=== PATIENT | male | born 1995 | race Caucasian/White ===

== ENCOUNTER 2017-03-22 16:49 | Emergency (ER) | payer OTHER ==
[~2017-03-22] VITALS: Ht 180.3 cm; Wt 80.7 kg
[2017-03-22] MEDS ORDERED: ASPIRIN 325 MG TABLET PO ONE (17:15)
[2017-03-22 17:30] VITALS: BP 119/69
--- NOTE | 2017-03-22 17:48 | ED.ADGEN ---
Past History Past Medical History: No Pertinent History Alcohol Use: None Drug Use: None Adult General Chief Complaint Chief Complaint Diffuse body rash HPI HPI Patient is a 22-year-old male presents with diffuse body rash with flushing after taking exercise supplement. Symptoms began 20 minutes ago started around face spread to torso and extremities. Rash is describing is warm and pruritic. No hives, oral pharyngeal swelling, chest tightness, wheezing or shortness of breath. She was taken similar exercise supplements without prior reactions. No other acute symptoms or complaints. Review of Systems Review of Systems Review symptoms as per history of present illness. All review of symptoms negative. Current Medications Current Medications Current Medications Medications (Trade) Dose Ordered Sig/Davonte Start Time Stop Time Status Last Admin Dose Admin Aspirin (Serafin Aspirin) 325 mg 1X ONCE 03/22/17 17:15 03/22/17 17:16 DC 03/22/17 17:13 325 MG Allergies Allergies Allergies Coded Allergies Type Severity Reaction Last Updated Verified No Known Drug Allergies 03/22/17 No Physical Exam Physical Exam Constitutional: No acute distress, generalized facial and body flushing. HENT: Normocephalic, atraumatic, bilateral external ears normal, oropharynx moist, no oral pharyngeal swelling. Eyes: PERRLA, EOMI. Neck: Normal range of motion, no tenderness, supple, no stridor. Cardiovascular:Heart rate regular rhythm, no murmur. Lungs & Thorax: Bilateral breath sounds clear to auscultation. Abdomen: Bowel sounds normal, soft, no tenderness. Skin: Diffuse flushing without hives. Neurologic: Alert and oriented X 3, normal motor function, normal sensory function, no focal deficits noted. Psychologic: Affect normal, judgement normal, mood normal. Current Patient Data Vital Signs Vital Signs Date Time Temp Pulse Resp B/P Pulse Ox O2 Delivery O2 Flow Rate FiO2 03/22/17 17:30 71 16 119/69 100 Room Air 03/22/17 17:01 98.2 EKG EKG [] Radiology/Procedures Radiology/Procedures [] Impressions: Niacin-like drug rash resolved in the ED with aspirin Course & Med Decision Making Course & Med Decision Making Pertinent Labs and Imaging studies reviewed. (See chart for details) [Advised against taking future supplements and instructed to repeat aspirin if rash persists or return. Return precautions reviewed.] Final Impression Final Impression [#1 Rash #2 adverse drug reaction Problems: Dragon Disclaimer Roseanna Disclaimer This electronic medical record was generated, in whole or in part, using a voice recognition dictation system. JACOB MEDLEY DO Mar 22, 2017 17:48
== END 2017-03-22 17:31 | disposition home or self-care (01) ==
LOC: ER 16:49
DX: T50.905A Adverse effect of unspecified drugs, medicaments and biological substances, initial encounter (principal); Y92.89 Other specified places as the place of occurrence of the external cause
CPT/HCPCS: 99282